=== PATIENT | female | born 1965 | race Native Hawaiian/Other Pacific Islander ===

== ENCOUNTER 2017-02-06 12:19 | Day surgery (SDC) | payer OTHER ==
[~2017-02-06] VITALS: Ht 30.5 cm; Wt 0.5 kg
[2017-02-06 12:49] LABS: POTASSIUM 3.5 mmol/L (3.6-5.2)
[2017-02-06 12:50] LABS: PLATELET COUNT 465 K/uL (152-353)
== END 2017-02-06 14:20 | disposition home or self-care (01) ==
LOC: OR 12:19
PROVIDERS: Surgery
PROC: 0DJD8ZZ Inspection of Lower Intestinal Tract, Via Natural or Artificial Opening Endoscopic (ICD-10-PCS; principal; 2017-02-06)
DX: Z12.11 Encounter for screening for malignant neoplasm of colon (principal); Z80.0 Family history of malignant neoplasm of digestive organs
CPT/HCPCS: 80048; 85027; J2001; J2250; J2704; J3010

== ENCOUNTER 2018-07-15 08:34 | Outpatient (CLI) | payer OTHER | END 2018-07-15 20:47 | disposition home or self-care (01) | LOC: MAMMO 08:34 | DX: Z12.31 Encounter for screening mammogram for malignant neoplasm of breast (principal) ==

== ENCOUNTER 2018-07-24 09:47 | Outpatient (CLI) | payer OTHER | END 2018-07-24 23:59 | disposition home or self-care (01) | LOC: MAMMO 09:47 | DX: R92.2 Inconclusive mammogram (principal) ==

== ENCOUNTER 2018-08-13 10:59 | Outpatient (CLI) | payer OTHER | END 2018-08-13 23:53 | disposition home or self-care (01) | LOC: RAD 10:59 | DX: Z01.818 Encounter for other preprocedural examination (principal) ==

== ENCOUNTER 2019-04-08 09:44 | Outpatient (CLI) | payer OTHER | END 2019-04-08 20:16 | disposition home or self-care (01) | LOC: RAD 09:44 | DX: M54.5 Low back pain (principal) ==

== ENCOUNTER 2019-10-17 13:58 | Outpatient (CLI) | payer OTHER | END 2019-10-17 22:07 | disposition home or self-care (01) | LOC: RAD 13:58 | DX: M54.2 Cervicalgia (principal) ==

== ENCOUNTER 2020-03-04 10:58 | Outpatient (CLI) | payer OTHER | END 2020-03-04 23:37 | disposition home or self-care (01) | LOC: MAMMO 10:58 | DX: Z12.31 Encounter for screening mammogram for malignant neoplasm of breast (principal) ==

== ENCOUNTER 2020-07-09 13:22 | Outpatient (CLI) | payer OTHER | END 2020-07-09 23:06 | disposition home or self-care (01) | LOC: RAD 13:22 | PROVIDERS: ATTEND Nurse Practitioner Family | DX: M54.12 Radiculopathy, cervical region (principal) ==

== ENCOUNTER 2020-09-27 14:02 | Outpatient (CLI) | payer OTHER | END 2020-09-27 19:55 | disposition home or self-care (01) | LOC: RAD 14:02 | PROVIDERS: ATTEND Neurological Surgery | DX: M47.22 Other spondylosis with radiculopathy, cervical region (principal); M47.816 Spondylosis without myelopathy or radiculopathy, lumbar region ==

== ENCOUNTER 2021-03-07 10:06 | Outpatient (CLI) | payer OTHER | END 2021-03-07 20:01 | disposition home or self-care (01) | LOC: MAMMO 10:06 | PROVIDERS: ATTEND Nurse Practitioner Family | DX: Z12.31 Encounter for screening mammogram for malignant neoplasm of breast (principal) ==

== ENCOUNTER 2021-09-14 10:42 | Outpatient (CLI) | payer OTHER | END 2021-09-14 19:10 | disposition home or self-care (01) | LOC: RAD 10:42 | PROVIDERS: ATTEND Registered Nurse | DX: R06.00 Dyspnea, unspecified (principal) ==

== ENCOUNTER 2022-02-09 09:49 | Outpatient (CLI) | payer OTHER | END 2022-02-09 19:32 | disposition home or self-care (01) | LOC: RAD 09:49 | PROVIDERS: ATTEND Internal Medicine | DX: Z02.71 Encounter for disability determination (principal); I10 Essential (primary) hypertension; M25.562 Pain in left knee; M54.59 Other low back pain; F32.A Depression, unspecified; J45.909 Unspecified asthma, uncomplicated; R10.2 Pelvic and perineal pain ==